=== PATIENT | male | born 1995 | race Caucasian/White ===

== ENCOUNTER 2018-09-11 20:37 | Emergency (ER) | payer BC ==
[2018-09-11] MEDS ORDERED: 0.9 % SODIUM CHLORIDE 1,000 ML BAG IV ONE (20:58)
[2018-09-11] MEDS ORDERED: ONDANSETRON HCL IV 4 MG/2 ML VIAL IVP ONE (20:58)
--- NOTE | 2018-09-11 21:01 | Emergency Department Record ---
History of Present Illness - General Chief complaint: Nausea, Vomiting, Diarrhea Stated complaint: POSS FOOD POISONING Time Seen by Provider: 09/11/18 20:58 Source: Patient Mode of Arrival: Ambulatory Limitations: No limitations - History of Present Illness Initial comments: 23 yo male presents with nausea, vomiting and diarrhea that started this afternoon. No blood in either. He is concerned given the symptoms started after eating at a pig roast. No fevers. No recent antibiotics or travel. No underlying GI disease history. MD complaint: Diarrhea, Nausea, Vomiting Onset/Timin -: Hour(s) (5) Description of Vomiting: Watery Description of Diarrhea: Water Location: Diffuse Severity: Moderate Quality: Aching Consistency: Constant Improves with: None Worsens with: Eating Context: Possible food poisoning Associated Symptoms: Denies other symptoms - Related Data Previous Rx's Medication Instructions Recorded Ondansetron [Zofran Odt] 4 mg PO Q8H #15 tab.rapdis 09/11/18 Allergies Allergy/AdvReac Type Severity Reaction Status Date / Time Sulfa (Sulfonamide AdvReac erythema Verified 09/11/18 20:50 Antibiotics) multiforme Travel Screening - Travel/Exposure Within Last 30 Days Have you traveled within the last 30 days?: No Review of Systems Constitutional: Denies: Chills, Fever, Malaise, Weakness Eyes: Denies: Eye discharge ENT: Denies: Congestion, Throat pain Respiratory: Denies: Cough, Dyspnea, Wheezes Cardiovascular: Denies: Chest pain, Palpitations, Syncope Endocrine: Denies: Fatigue Gastrointestinal: Reports: Abdominal pain, Diarrhea, Nausea, Vomiting Genitourinary: Denies: Dysuria, Frequency, Hematuria Musculoskeletal: Reports: Back pain, Myalgia. Denies: Arthralgia Skin: Denies: Bruising, Change in color, Rash Neurological: Denies: Headache Psychiatric: Denies: Anxiety Hematological/Lymphatic: Denies: Easy bleeding, Easy bruising Past Medical History - SOCIAL HISTORY Smoking Status: Light tobacco smoker (<10/day) Alcohol Use: Occasional Drug Use: None - RESPIRATORY Hx Respiratory Disorders: No - CARDIOVASCULAR Hx Cardio Disorders: No - NEURO Hx Neuro Disorders: No - GI Hx GI Disorders: No - Hx Genitourinary Disorders: No - ENDOCRINE Hx Endocrine Disorders: No - MUSCULOSKELETAL Hx Musculoskeletal Disorders: No - PSYCH Hx Psych Problems: No - HEMATOLOGY/ONCOLOGY Hx Hematology/Oncology Disorders: No Family Medical History Any Significant Family History?: No Physical Exam - General General Appearance: Alert, Oriented x3, Cooperative, No acute distress - Head Head exam: Atraumatic, Normal inspection - Eye Eye exam: Normal appearance. negative: Conjunctival injection - ENT ENT exam: Normal exam, Mucous membranes moist Ear exam: Normal external inspection Nasal Exam: Normal inspection Mouth exam: Normal external inspection - Neck Neck exam: Normal inspection, Full ROM. negative: Tenderness - Respiratory Respiratory exam: Normal lung sounds bilaterally. negative: Respiratory distress - Cardiovascular Cardiovascular Exam: Regular rate, Normal rhythm, Normal heart sounds - GI/Abdominal GI/Abdominal exam: Soft. negative: Tenderness - Rectal Rectal exam: Deferred - exam: Deferred - Extremities Extremities exam: Normal inspection - Back Back exam: Denies: CVA tenderness (R), CVA tenderness (L) - Neurological Neurological exam: Alert, Oriented X3 - Psychiatric Psychiatric exam: Normal affect, Normal mood - Skin Skin exam: Dry, Intact, Normal color, Warm Course Vital Signs 09/11/18 20:50 Temperature 97.7 F Pulse Rate 93 H Respiratory 24 Rate Blood Pressure 143/99 Pulse Ox 97 - Reevaluation(s) Reevaluation #1: 09/11/18 21:45 The CBC was reviewed WBC is 14 The patient reports the nausea is well controlled He is hungry at this time No abdominal pain 09/11/18 21:57 No acute changes on the CMP or Lipase 09/11/18 22:12 The patient is doing well. No vomiting or diarrhea after the PO challenge. DC home with instructions for bland diet, reasons to return, and follow up Medical Decision Making - Lab Data Result diagrams: 09/11/18 20:55 09/11/18 20:55 Disposition Disposition: Discharge Clinical Impression: Vomiting and diarrhea Disposition: Home, Self-Care Condition: (1) Good Instructions: Acute Nausea and Vomiting (ED), Acute Diarrhea (ED) Additional Instructions: [place] diet the next 2 days. Slowly add solid foods avoid fatty foods Zofran as needed every 4-6 hours for nausea Return if you have pain, fever, or any new concerns Prescriptions: Ondansetron [Zofran Odt] 4 mg PO Q8H #15 tab.rapdis Forms: Patient Portal Access Time of Disposition: 22:14 Quality - Quality Measures Quality Measures: N/A - Blood Pressure Screening Does Patient Have Any of the Following: No Blood Pressure Classification: Hypertensive Reading Systolic Measurement: 143 Diastolic Measurement: 99 Screening for High Blood Pressure: < Pre-Hypertensive BP, F/U Documented > [ [id number]] Pre-Hypertensive Follow-up Interventions: Referral to alternative/primary care provider.
[2018-09-11] MEDS ORDERED: KETOROLAC 30 MG/ML VIAL IVP ONE (21:08)
[2018-09-11 21:41] LABS: BASO % 0.1 % (0-6); EOS % 0.2 % (0-6); HEMATOCRIT 48.4 % (42.0-52.0); HEMOGLOBIN 16.7 gm/dl (14.0-18.0); LYMPH % 3.5 % (16-45); MEAN CELL VOLUME 84.3 fl (81-97); MEAN CORPUSCULAR HGB CONC 34.5 g/dl (32-36); MEAN PLATELET VOLUME 9.2 fl (7.4-10.4); MONO % 5.6 % (0-9); PLATELET COUNT 319 K/uL (130-400); RED BLOOD COUNT 5.74 M/uL (4.40-5.70); RED CELL DISTRIBUTION WIDTH 12.5 % (11.5-14.5)
[2018-09-11 21:49] LABS: BLOOD UREA NITROGEN 15 mg/dL (6-20); EST GLOMERULAR FILTRATION RATE > 60 mL/min
[2018-09-11 21:50] LABS: TOTAL PROTEIN 8.4 g/dL (6.6-8.7)
[2018-09-11 21:52] LABS: GLUCOSE,RANDOM 128 mg/dL (74-109)
[2018-09-11 21:54] LABS: ALT/SGPT 21 U/L (<41)
[2018-09-11 21:55] LABS: ALB/GLOB RATIO 1.9 (1.1-1.8); ALBUMIN 5.5 g/dL (4.0-5.0); ALKALINE PHOSPHATASE 97 U/L (40-129); AST/SGOT 24 U/L (10.0-50.0); LIPASE 13 U/L (13-60)
[2018-09-11 22:01] LABS: PLATELET ESTIMATE NORMAL (NORMAL)
[2018-09-11] MEDS ORDERED: ONDANSETRON 4 MG ODT TABLET SL ONE (22:11)
== END 2018-09-11 22:29 | disposition home or self-care (01) ==
LOC: ER 20:37
DX: R11.2 Nausea with vomiting, unspecified (principal); R19.7 Diarrhea, unspecified; F17.210 Nicotine dependence, cigarettes, uncomplicated
CPT/HCPCS: 99284 ×2; 96374; 96375; 83690; 80053; 85027; J1885; J2405; J7030